=== PATIENT | male | born 1940 | race Caucasian/White ===

== ENCOUNTER 2021-10-31 14:52 | Emergency (ER) | payer MEDICARE, BC ==
[2021-10-31] MEDS ORDERED: Sodium Chloride 0.9% 10 ML Syringe FLUSH PRN (14:54)
[2021-10-31 15:32] LABS: ANION GAP 15.5 mEq/L (7-13)
[2021-10-31] MEDS ORDERED: Aspirin 81 MG Tab.Chew PO ONE (18:08)
[2021-10-31] MEDS ORDERED: Heparin Sodium 5,000 Units/ML Vial IVPUSH ONE (18:16)
[2021-10-31] MEDS ORDERED: Heparin Sodium/0.45% NaCl 25,000 UNITS/500 ML BAG IV SCH (18:30)
[2021-10-31 19:03] LABS: CORONAVIRUS COVID-19 NAA NEGATIVE (NEGATIVE)
== END 2021-10-31 20:25 ==
LOC: DL.ED 14:52
DX: I21.4 Non-ST elevation (NSTEMI) myocardial infarction (principal); K43.9 Ventral hernia without obstruction or gangrene; E78.00 Pure hypercholesterolemia, unspecified; I10 Essential (primary) hypertension; I25.2 Old myocardial infarction; E11.9 Type 2 diabetes mellitus without complications; Z79.82 Long term (current) use of aspirin; Z79.899 Other long term (current) drug therapy; Z79.84 Long term (current) use of oral hypoglycemic drugs; Z20.822 Contact with and (suspected) exposure to COVID-19
CPT/HCPCS: 0240U; 36415; 71045; 80053; 81001; 82150; 83690; 84484; 85025; 93005; 96365; 96366; 99285; A9270; J1644; J3490; 93010